=== PATIENT | male | born 1950 ===

== ENCOUNTER 2025-03-25 23:11 | Emergency (ER) | payer OTHER, SELFPAY ==
--- OUTSIDE RECORDS SUMMARY | 2025-03-21 23:59 | XMS_ITS | Continuity of Care Document ---
Author Organization [facility] Address [address] [place] [address]- Care Team Providers Care Editor News Name Role Phone Neftali Santos MD Primary Care Physician Encounter [facility] Date(s): 02/19/25 - 03/21/25 [facility] [address] [place] [address]- Encounter Type: Triage Allergies, Adverse Reactions, Alerts No Known Allergies Immunizations Given and Recorded Vaccine Date Status Refusal Reason SARS-CoV-2(COVID-19)mRNA-LNP vac([id number]) 05/29/23 Recorded pneumococcal 20-valent conjugate vaccine 05/25/23 Given SARS-CoV-2 (COVID-19) mRNA BNT-162b2 vac 06/21/21 Given SARS-CoV-2 (COVID-19) Ad26 vaccine 11/02/20 Record ed influenza virus vaccine, inactivated 06/29/20 Give n influenza virus vaccine, inactivated 05/12/15 Give n pneumococcal 23-valent vaccine 04/23/14 Given pneumococcal 23-valent vaccine 03/20/12 Recorded Zoster Vaccine Live 1 02/04/14 Given tetanus/diphtheria/pertussis, acel(Tdap) 02/04/14 Given tetanus/diphtheria/pertussis, acel(Tdap) 12/11/11 Recorded 1Result Comment: [02/04/2014] Sterile Diluent Lot#[id number] Exp: 06/2014 Medications acetaminophen 500 mg oral tablet See Instructions, TOME DOS TABLETAS POR VIA ORAL CADA DOCE HORAS CUANDO SEA NECESARIO PARA EL [id number] DAYS, # 60 tablet, 0 Refills, Maintenance, 02/19/25 10:12:00 AM EDT, [id number], 173, cm, 01/16/25 18:26:00 EDT, Height, 68.7, kg, 11/22/24 13:30:00 EDT, Dry Weight Start Date: 02/19/25 Status: Ordered Medication Dispense Status: Completed Quantity: 60.0 Unit: tablet Total Allowed Fills: 1 Fills Dispensed: 0 aspirin 81 mg oral delayed release tablet 1 tablet = 81 mg, By Mouth, Daily, # 90 tablet, 3 Refills, Maintenance, 08/09/24 11:31:00 AM EST, CRTablet, [facility]/pharmacy #[id number], Partial fill upon patient request if the prescription is for a scheduleII opioid drug., 173, cm, 08/09/24 10:08:00 EST, Height, 68, kg, 02/14/23 12:59:00 EDT, Dry Weight Start Date: 08/09/24 Status: Ordered Medication Dispense Status: Completed Quantity: 90.0 Unit: tablet Total Allowed Fills: 4 Fills Dispensed: 0 atorvastatin 80 mg oral tablet = 80 mg, By Mouth, Daily at bedtime, # 90 tablet, 3 Refills, Maintenance, 11/16/22 1:45:00 PM EDT, Tablet, [facility]/pharmacy #[id number], Label in Zimbabwean., 171, cm, 11/16/22 13:28:00 EDT, Height, 67.6, kg, 03/29/22 15:27:00 EDT, Dry Weight Start Date: 11/16/22 Stop Date: 11/11/23 Status: Ordered Medication Dispense Status: Completed Quantity: 90.0 Unit: tablet Total Allowed Fills: 4 Fills Dispensed: 0 carvedilol 6.25 mg oral tablet TOME 1 TABLETA POR V A ORAL DOS VECES AL D A Start Date: 11/04/24 Status: Ordered Medication Dispense Status: Completed Total Allowed Fills: 1 Fills Dispensed: 0 cholecalciferol 1000 intl units oral capsule 1 capsule = 25 mcg, By Mouth, Daily, # 100 capsule, 1 Refills, Maintenance, 01/26/23 4:13:00 PM EDT, Capsule, [facility]/pharmacy #[id number], Label in [place]an., 171, cm, 01/26/23 14:01:00 EDT, Height, 67.6, kg, 03/29/22 15:27:00 EDT, Dry Weight Start Date: 01/26/23 Status: Ordered Medication Dispense Status: Completed Quantity: 100.0 Unit: capsule Total Allowed Fills: 2 Fills Dispensed: 0 docusate sodium 100 mg oral capsule See Instructions, TOME 1 CAPSULA POR VIA ORAL DOS VECES AL MITCH TO PREVENT CONSTIPATION, TAKE WITH PLENTY OF WATER, # 180 capsule, 1 Refills, Maintenance, 01/13/25 11:32:00 AM EDT, [facility]/pharmacy #[id number], 173, cm, 12/20/24 10:30:00 EDT, Height, 68.7, kg, 11/22/24 13:30:00 EDT, Dry Weight Start Date: 01/13/25 Status: Ordered Medication Dispense Status: Completed Quantity: 180.0 Unit: capsule Total Allowed Fills: 2 Fills Dispensed: 0 Eliquis 2.5 mg oral tablet 1 tablet = 2.5 mg, By Mouth, 2 times a day, Take for the first 7 days postop, then resume home dose., # 14 tablet, 0 Refills, Maintenance, 11/23/24 8:11:00 AM EDT, Tablet, Partial fill upon patient request if the prescription is for a schedule II opioid drug. Start Date: 11/23/24 Stop Date: 11/30/24 Status: Ordered Medication Dispense Status: Completed Quantity: 14.0 Unit: tablet Total Allowed Fills: 1 Fills Dispensed: 0 Eliquis 5 mg oral tablet 1 tablet = 5 mg, By Mouth, 2 times a day, # 60 tablet, 5 Refills, 03/27/24 11:59:00 AM EDT, [facility]/pharmacy #[id number], Label in [place]an., 173, cm, 10/27/23 13:36:00 EDT, Height, 68, kg, 02/14/23 12:59:00 EDT,Dry Weight Start Date: 03/27/24 Status: Ordered Medication Dispense Status: Completed Quantity: 60.0 Unit: tablet Total Allowed Fills: 6 Fills Dispensed: 0 ferrous sulfate 325 mg oral enteric coated tablet 1, tablet, By Mouth, Every 48 hours, # 45 tablet, Refills 1, Maintenance, 09/18/23 11:41:00 AM EST, Route to Pharmacy Electronically, [id number], 173, cm, 06/22/23 15:01:00 EST, Height, 68, kg, 02/14/23 12:59:00 EDT, Dry Weight Start Date: 09/18/23 Status: Ordered Medication Dispense Status: Completed Quantity: 45.0 Unit: tablet Total Allowed Fills: 1 Fills Dispensed: 0 fluticasone 50 mcg/inh nasal spray See Instructions, USE 1 SPRAY IN EACH NOSTRIL DOS VECES AL MITCH, # 48 mL, 5 Refills, Maintenance, 09/18/23 9:55:00 AM EST, [facility]/pharmacy #[id number], 90, USE 1 SPRAY IN EACH NOSTRIL DOS VECES AL MITCH, 173, cm,06/22/23 15:01:00 EST, Height, 68, kg, 02/14/23 12:59:00 EDT, Dry Weight Start Date: 09/18/23 Status: Ordered Medication Dispense Status: Completed Quantity: 48.0 Unit: mL Total Allowed Fills: 6 Fills Dispensed: 0 Home Blood Pressure Monitor See Instructions, # 1 each, Maintenance, Hypertension I10 Monitor blood pressure in home, 10/30/23 8:27:00 AM EDT, Supply Start Date: 10/30/23 Status: Ordered Medication Dispense Status: Completed Quantity: 1.0 Unit: each Total Allowed Fills: 1 Fills Dispensed: 0 loratadine 10 mg oral tablet See Instructions, TOME 1 TABLETA POR VIA ORAL TODOS [place], # 90 tablet, Refills 1, Maintenance, 02/19/25 10:49:00 AM EDT, Instructions Replace Required Details, Route to Pharmacy Electronically, [facility]ORE [id number], 173, cm, 01/16/25 18:26:00 EDT, Height, 68.7, kg, 11/22/24 13:30:00 EDT, Dry Weight Start Date: 02/19/25 Status: Ordered Medication Dispense Status: Completed Quantity: 90.0 Unit: tablet Total Allowed Fills: 1 Fills Dispensed: 0 MiraLax Powder 1 pack/packet = 17 Gm, By Mouth, Daily, PRN Constipation, 0 Refills, Maintenance, 11/23/24 8:14:00 AMEDT, Powder, Partial fill upon patient request if the prescription is for a schedule II opioid drug. Start Date: 11/23/24 Status: Ordered Medication Dispense Status: Completed Total Allowed Fills: 1 Fills Dispensed: 0 naloxone 4 mg/0.1 mL nasal spray = 4 mg, Nares, Both, Once, # 2 each, 12 Refills, Soft Stop, 03/28/23 5:00:00 PM EDT, [facility]/pharmacy #[id number], Partial fill upon patient request if the prescription is for a schedule II opioid drug., 173, cm, 03/28/23 15:18:00 EDT, Height, 68, kg, 02/14/23 12:59:00 EDT, Dry Weight Start Date: 03/28/23 Status: Ordered Medication Dispense Status: Completed Quantity: 2.0 Unit: each Total Allowed Fills: 13 Fills Dispensed: 0 oxyCODONE 5 mg oral tablet 5 mg, 1, tablet, By Mouth, Daily, PRN, # 28 tablet, Refills 0, Tot. Refills 0, Maintenance, Pain , Severe, 03/20/25 2:48:00 PM EDT, Route to Pharmacy Electronically, [facility], Partial fill upon patient request if the prescription is for a schedule II opioid drug. 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; Ok to dispense on monday01/21/25, 173, cm, 01/16/25 18:26:00 EDT, Height, 68.7, kg, 11/22/24 13:30:00 EDT, Dry Weight Start Date: 03/20/25 Status: Ordered Medication Dispense Status: Completed Quantity: 28.0 Unit: tablet Total Allowed Fills: 1 Fills Dispensed: 0 Indications: Osteoarthritis of knee, unspecified; pantoprazole 40 mg oral delayed release tablet = 40 mg, By Mouth, Daily, # 30 tablet, 0 Refills, Maintenance, 11/23/24 8:12:00 AM EDT, EC Tablet Start Date: 11/23/24 Stop Date: 12/23/24 Status: Ordered Medication Dispense Status: Completed Quantity: 30.0 Unit: tablet Total Allowed Fills: 1 Fills Dispensed: 0 Rollator Walker with seat and breaks Rollator Walker with seat and breaks, See Instructions, # 1 each, Refills 0, Tot. Refills 0, Maintenance, Dx: Osteoarthritis M19.90 Duration: lifetime Ht: 169cm wt: 70.7kg, 03/02/22 10:39:00 AM EDT, Supply Start Date: 03/02/22 Status: Ordered Medication Dispense Status: Completed Quantity: 1.0 Unit: each Total Allowed Fills: 1 Fills Dispensed: 0 Senna-Time 8.6 mg oral tablet See Instructions, TOME DOS TABLETAS POR VIA ORAL AL ACOSTARSE CUANDO SEA NECESARIO CONSTIPATION, # 60 tablet, 0 Refills, Maintenance, 02/19/25 10:12:00 AM EDT, [facility] [id number], 173, cm, 01/16/25 18:26:00 EDT, Height, 68.7, kg, 11/22/24 13:30:00 EDT, Dry Weight Start Date: 02/19/25 Status: Ordered Medication Dispense Status: Completed Quantity: 60.0 Unit: tablet Total Allowed Fills: 1 Fills Dispensed: 0 Shower chair Shower chair, See Instructions, # 1 each, Refills 0, Tot. Refills 0, Maintenance, Dx: Osteoarthritis M19.90 Duration: lifetime Ht: 169cm wt: 70.7kg, 03/02/22 10:38:00 AM EDT, Supply Start Date: 03/02/22 Status: Ordered Medication Dispense Status: Completed Quantity: 1.0 Unit: each Total Allowed Fills: 1 Fills Dispensed: 0 Tears Naturale Forte preserved ophthalmic solution 1 drops, Eyes, Both, 2 times a day, PRN for dry eyes, # 30 mL, 3 Refills, Maintenance, 08/09/24 11:32:00 AM EST, Solution, [facility]/pharmacy #[id number], Partial fill upon patient request if the prescription is for a schedule II opioid drug., 1 drops Eyes, Both 2 times a day,PRN:for dry eyes, 173, cm, 08/09/2509:08:00 EST, Height, 68, kg, 02/14/23 12:59:00 EDT, Dry Weight Start Date: 08/09/24 Status: Ordered Medication Dispense Status: Completed Quantity: 30.0 Unit: mL Total Allowed Fills: 4 Fills Dispensed: 0 VITAMIN D3 1,000 UNIT SOFTGEL VITAMIN D3 1,000 UNIT SOFTGEL, 1, capsule, By Mouth, Daily, # 100 capsule, 3 Refills, Maintenance, 01/15/24 1:41:00 PM EDT, 173, cm, 10/27/23 13:36:00 EDT, Height, 68, kg, 02/14/23 12:59:00 EDT, Dry Weight Start Date: 01/15/24 Status: Ordered Medication Dispense Status: Completed Quantity: 100.0 Unit: capsule Total Allowed Fills: 1 Fills Dispensed: 0 Problem List Condition Confirmation Course Effective Dates Status Health Status Informant Atrial fibrillation Confirmed Active Constipation Confirmed Active Coronary artery disease Confirmed Active DDD (degenerative disc disease), lumbar Confirmed Active Duodenal diverticulum by imaging Confirmed Active History of heart attack Confirmed Active Status post left hip surgery Confirmed 11/10/18 Active History of hypercholesteremia Confirmed Active Hyperparathyroidism Confirmed Active History of hypertension Confirmed Active Hypertension Confirmed Active Hernia, inguinal, left 1 Confirmed Active Low back pain Confirmed Active Microscopic hematuria Confirmed Active Osteoarthritis of knee 2 Confirmed Active Prediabetes Confirmed Active Kidney cysts Confirmed Active Spinal stenosis of lumbar region 3 Confirmed 2011 Active Staghorn renal calculus Confirmed Active Tubular adenoma of colon Confirmed 06/25/14 Active 1S/P Repair February 16 2pe 2012 MRI, left, severe 3severe on 2011 MRI Social History Social History Type Response Tobacco Other: Quit 2013. Sex Sex Representation Male (finding) Implantable Device List Procedure Provider Procedure Date Device Type Site Repair Hernia Inguinal Laparoscopic with Pietro Adan DO 02/16/23 Unknown Groin Left Device Identifier Serial Number Lot or Batch Number Manufacturing Date Expiration Date Distinct Identification Code MRI Safety Implantable Status Assigning Authority [id number] Unknown [id number] Unknown 08/20/27 Unknown Unknown Active GS1 Patient Care team information Care Team Personnel Name: Isha Belcher RN Position: [facility] Hospital Entry Manager Member Role: Primary Care Nurse Name: Kinga Wylie RN Position: [facility] RN Member Role: Primary Care Nurse Name: Chelsea Chacko RN Position: [facility] RN Member Role: Primary Care Nurse Name: Moon Darling RN Position: [facility] RN Member Role: Primary Care Nurse Name: Freddie De RN Position: [facility] RN Member Role: Primary Care Nurse Name: Neftali Santos MD Position: [facility] Resident Member Role: PCP Address: [address] [place] [address] Telecom: Name: Rickey Coates RN Position: [facility] RN Member Role: Primary Care Nurse Name: Chelsea Mathias RN Position: S RN Member Role: Primary Care Nurse Name: Eusebia Coe RN Position: S RN Member Role: Primary Care Nurse Care Team Related Persons Name: COMFORT JARAMILLO Insurance Providers Guarantor name: [facility] Information #: 1 Payer: MEDICARE B Payer Identifier: ROCHELLE Member Number: [id number] Group Number: [place]HEL[place] Subscriber Identifier: NA Relationship to Subscriber: self Coverage Type: NA Coverage Verification Date: NA Telecom: NA Address: [facility] Information #: 2 Payer: [facility] CUST[employer]ER SERVICE Payer Identifier: ROCHELLE Member Number: [id number] Group Number: ROCHELLE Subscriber Identifier: NA Relationship to Subscriber: self Coverage Type: MEDICAID Coverage Verification Date: NA Telecom: NA Address:
--- OUTSIDE RECORDS SUMMARY | 2025-03-21 23:59 | XMS_ITS | Continuity of Care Document ---
Author Organization [facility] Address [address] [place] [address]- Care Team Providers Care Edi Specialist Name Role Phone Neftali Santos MD Primary Care Physician Encounter [facility] Date(s): 02/19/25 - 03/21/25 [facility] [address] [place] [address]- Encounter Type: Triage Allergies, Adverse Reactions, Alerts No Known Allergies Immunizations Given and Recorded Vaccine Date Status Refusal Reason SARS-CoV-2(COVID-19)mRNA-LNP vac([id number]) 05/29/23 Recorded pneumococcal 20-valent conjugate vaccine 05/25/23 [...] 12/11/11 Recorded 1Result Comment: [02/04/2014] Sterile Diluent Lot#[id number] Exp: 06/2014 Medications acetaminophen 500 mg oral tablet See Instructions, TOME DOS TABLETAS POR VIA ORAL CADA DOCE HORAS CUANDO SEA NECESARIO PARA EL [id number] DAYS, # 60 tablet, 0 Refills, Maintenance, 02/19/25 10:12:00 AM EDT, [facility], 173, cm, 01/16/25 18:26:00 EDT, Height, 68.7, kg, 11/22/24 13:30:00 EDT, Dry Weight Start Date: 02/19/25 Status: Ordered Medication Dispense Status: Completed Quantity: 60.0 Unit: tablet Total Allowed Fills: 1 Fills Dispensed: 0 aspirin 81 mg oral delayed release tablet 1 tablet = 81 mg, By Mouth, Daily, # 90 tablet, 3 Refills, Maintenance, 08/09/24 11:31:00 AM EST, CRTablet, [facility]/pharmacy #[id number], Partial fill upon patient request if [...] Refills, Maintenance, 11/16/22 1:45:00 PM EDT, Tablet, [facility]/pharmacy #[id number], Label in Azerbaijani., 171, cm, 11/16/22 13:28:00 EDT, Height, 67.6, [...] Refills, Maintenance, 01/26/23 4:13:00 PM EDT, Capsule, [facility]/pharmacy #[id number], Label in Azerbaijani., 171, cm, 01/26/23 14:01:00 EDT, Height, 67.6, [...] 1 Refills, Maintenance, 01/13/25 11:32:00 AM EDT, [facility]/pharmacy #[id number], 173, cm, 12/20/24 10:30:00 EDT, Height, [...] tablet, 5 Refills, 03/27/24 11:59:00 AM EDT, [facility]/pharmacy #[id number], Label in Azerbaijani., 173, cm, 10/27/23 13:36:00 EDT, Height, 68, kg, 02/14/23 12:59:00 EDT,Dry Weight Start Date: 03/27/24 Status: Ordered Medication Dispense Status: Completed Quantity: 60.0 Unit: tablet Total Allowed Fills: 6 Fills Dispensed: 0 ferrous sulfate 325 mg oral enteric coated tablet 1, tablet, By Mouth, Every 48 hours, # 45 tablet, Refills 1, Maintenance, 09/18/23 11:41:00 AM EST, Route to Pharmacy Electronically, [facility], 173, cm, 06/22/23 15:01:00 EST, Height, 68, kg, 02/14/23 12:59:00 EDT, Dry Weight Start Date: 09/18/23 Status: Ordered Medication Dispense Status: Completed Quantity: 45.0 Unit: tablet Total Allowed Fills: 1 Fills Dispensed: 0 fluticasone 50 mcg/inh nasal spray See Instructions, USE 1 SPRAY IN EACH NOSTRIL DOS VECES AL MITCH, # 48 mL, 5 Refills, Maintenance, 09/18/23 9:55:00 AM EST, [facility]/pharmacy #[id number], 90, USE 1 SPRAY IN EACH [...] Replace Required Details, Route to Pharmacy Electronically, [facility] [id number], 173, cm, 01/16/25 18:26:00 EDT, Height, 68.7, [...] Refills, Soft Stop, 03/28/23 5:00:00 PM EDT, [facility]/pharmacy #[id number], Partial fill upon patient request if [...] 2:48:00 PM EDT, Route to Pharmacy Electronically, [facility], Partial fill upon patient request if the prescription is for a schedule II opioid drug. 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; [...] 0 Refills, Maintenance, 02/19/25 10:12:00 AM EDT, [facility] 55252, 173, cm, 01/16/25 18:26:00 EDT, Height, 68.7, [...] Refills, Maintenance, 08/09/24 11:32:00 AM EST, Solution, [facility]/pharmacy #[id number], Partial fill upon patient request if the [...] Code MRI Safety Implantable Status Assigning Authority [id number] Unknown [id number] Unknown 08/20/27 Unknown Unknown Active GS1 Patient Care team information Care Team Personnel Name: Isha Beclher RN Position: [facility] Hospital Blind Stitch Machine Operator Member Role: Primary Care Nurse Name: Kinga Wylie RN Position: [facility] RN Member Role: Primary Care Nurse Name: Chelsea Chacko RN Position: [facility] RN Member Role: Primary Care Nurse Name: Moon Darling RN Position: [facility] RN Member Role: Primary Care Nurse Name: Freddie De RN Position: [facility] RN Member Role: Primary Care Nurse Name: Neftali Santos MD Position: [facility] Resident Member Role: PCP Address: [address] [place] [address] Telecom: Name: Rickey Coates RN Position: [facility] RN Member Role: Primary Care Nurse Name: Chelsea Mtahias RN Position: S RN Member Role: Primary Care Nurse Name: Eusebia Coe RN Position: S RN Member Role: Primary Care Nurse Care Team Related Persons Name: COMFORT JARAMILLO Insurance Providers Guarantor name: [facility] Information #: 1 Payer: MEDICARE B Payer Identifier: ROCHELLE Member Number: [id number] Group Number: [place]HEL[place] Subscriber Identifier: NA Relationship to Subscriber: self Coverage Type: NA Coverage Verification Date: NA Telecom: NA Address: [facility] Information #: 2 Payer: [facility] C[employer]ER [employer]ICE Payer Identifier: ROCHELLE Member Number: [id number] Group Number: [place]HELLE Subscriber Identifier: NA Relationship to Subscriber: self Coverage Type: MEDICAID Coverage Verification Date: NA Telecom: NA Address:
[2025-03-25 23:21] VITALS: BP 177/128; PULSE 74; RESP 18; TEMP 36.7; O2SAT 98; BMI 23.1
[2025-03-26 00:23] LABS: Hematocrit 39.6 % (42.0-52.0); Hemoglobin 12.9 g/dl (14.0-18.0); Mean Corpuscular HGB Conc 32.6 g/dl (31.0-36.0); Mean Corpuscular Hemoglobin 26.3 pg (27.0-33.0); Mean Corpuscular Volume 80.8 fL (80.0-98.0); NRBC Abs Auto 0.000 X10*3/uL (0.0-0.012); NRBC Pct Auto 0.0 /100WBC (0.0-0.2); Platelet Count 240 X10*3/uL (160-400); Red Blood Count 4.90 X10*6/uL (4.60-5.80); White Blood Count 7.8 X10*3/uL (4.8-10.8)
[2025-03-26 00:24] LABS: Appearance Urine Clear; Glucose Urine UA Negative (Negative); PH 7.0 (5.0-9.0); Specific Gravity - Urine 1.015 (1.005-1.025); UMIC TRIGGER UACC YES
[2025-03-26 00:27] LABS: UACC Culture Trigger YES
[2025-03-26 00:37] LABS: Alanine Aminotransferase 30 U/L (0-40); Albumin Level 4.2 g/dL (3.5-5.0); Alkaline Phosphatase 142 U/L (39-117); Anion Gap 13 (12-20); Aspartate Amino Transferase 34 U/L (5-37); Blood Urea Nitrogen 22 mg/dL (9-16); Calcium 9.4 mg/dL (8.4-10.2); Carbon Dioxide 21 mmol/L (22-29); Chloride 111 mmol/L (96-108); Creatinine Clr Calc Pharmacy 56.6; Estimated Glomerular Filt Rate > 60; Potassium 4.5 mmol/L (3.3-5.1); Sodium 140 mmol/L (135-145); Total Protein 7.3 g/dL (6.5-8.0)
--- NOTE | 2025-03-26 01:08 | ED.GENADULT ---
HPI - General Adult General Chief complaint: Abdominal Pain Stated complaint: Possible UTI Time Seen by Provider: 03/26/25 00:41 Source: patient, RN notes reviewed and old records reviewed Mode of arrival: ambulatory Limitations: no limitations History of Present Illness ED Provider: Cisco MALDONADO narrative: 74-year-old male presents for evaluation of left flank pain and foul-smelling urine with urinary frequency. His symptoms started a few days ago. He reports no fevers or chills pain He has a remote history of kidney stones about 20 years ago. His pain is intermittent. Currently he has very little pain, approximately 2/10. He has a history of coronary artery disease he is not a diabetic Related Data Previous Rx's ?Medication ?Instructions ?Recorded cefuroxime axetil 500 mg tablet 500 mg PO Q12H #14 tabs 03/26/25 phenazopyridine 200 mg tablet 200 mg PO TID PRN pain 6 doses #6 03/26/25 (Pyridium) tabs Allergies Allergy/AdvReac Type Severity Reaction Status Date / Time No Known Allergies Allergy Verified 03/25/25 23:22 Review of Systems Constitutional: Constitutional: Denies body ache(s), Denies chills, Denies fever(s) and Denies headache(s) ENT: Denies vertigo, Denies dizziness and Denies headache(s) Cardiovascular: Cardiovascular: Denies chest pain and Denies dyspnea on exertion Respiratory: Respiratory: Denies cough and Denies dyspnea on exertion Gastrointestinal: Gastrointestinal: Reports abdominal pain, Denies nausea and Denies vomiting Genitourinary: Genitourinary: Reports dysuria, Reports flank pain and Reports urinary frequency Comments: reports foul-smelling urine Neurologic: Denies vertigo, Denies dizziness and Denies headache(s) [facility] Social History Social History Smoked in Last 30 Days: No Use of substances other than those prescribed or required for medical reasons: No Advance Directives: No Advance Directives Information Provided: Yes Physical Exam ED Vital Signs: Vital Signs - 24 hr 03/25/25 23:21 03/26/25 01:25 03/26/25 01:26 Temperature 98.1 F 98.1 F 98.1 F Pulse Rate 74 82 82 Respiratory Rate 18 18 18 Blood Pressure 177/128 H 169/78 H 169/78 H Pulse Oximetry 98 98 98 Oxygen Delivery Method Room Air Room Air Room Air BMI result Body Mass Index 23.1 Const General: healthy appearing, comfortable, no acute distress, alert and awake Nutritional Appearance: well nourished Orientation/consciousness: patient oriented x3 HENMT Head: Yes normocephalic and Yes atraumatic Eyes Eyelids: Yes eyelids normal Conjunctivae: conjunctivae normal Sclerae: sclerae normal Corneas: corneas normal Pupils: Equal, round and reactive pupils present EOM: EOMs intact bilaterally Neck Neck: Yes full ROM Resp Effort & Inspection: normal respiratory effort, able to speak in complete sentences and not labored GI Inspection: No distended Palpation (GI): Soft to palpation, not firm, nontender, no guarding and not rigid General: No CVA tenderness and Yes no CVA tenderness Back/Spine/Pelvis Back: no CVA tenderness and No CVA tenderness Skin General skin exam: elasticity normal Neuro General: patient oriented x3 Cranial nerves: Yes Equal, round and reactive pupils present and Yes Bilaterally intact EOM present Cognition (Neuro): normal cognition Extrem Other: Moving all extremities well without any obvious deformities Medications Administered Discontinued Medications Generic Name Dose Route Start Last Admin Trade Name Freq PRN Reason Stop Dose Admin Cefuroxime Axetil 500 mg 03/26/25 01:08 03/26/25 01:22 Cefuroxime Axetil 500 Mg Tablet PO 03/26/25 01:09 500 mg ONCE ONE Administration Medical Decision Making Medical Decision Making [facility] Narrative: 74-year-old male presenting for evaluation of left flank pain, foul-smelling urine and urinary frequency. He is mildly hypertensive but otherwise vital signs are stable, he is afebrile, he is not tachycardic. On exam he appears well, he has no significant abdominal pain or tenderness. No CVA tenderness. He has no leukocytosis, his urinalysis does show 4+ bacteria with positive nitrites and leukocyte esterase. there is trace blood noted in the urine. This is far more consistent with an infectious process than an obstructive stone. The patient has very limited pain, and again with no CVA tenderness I feel that obstructive uropathy is far less likely. I did discuss with the patient possible imaging and he would like to defer at this time. I gave him return precautions, especially develop severe pain or fevers to return to the emergency department for likely imaging Differential Diagnosis Differential Diagnoses: The differential diagnosis associated with the presentation includes UTI Cystitis Pyelonephritis Obstructive uropathy Lab Data MDM Lab Attestation statement: I reviewed the patient's lab results. as above 03/26/25 00:12 03/26/25 00:12 Labs: Lab Results 03/26/25 Range/Units 00:12 WBC 7.8 (4.8-10.8) X10*3/uL RBC 4.90 (4.60-5.80) X10*6/uL Hgb 12.9 L (14.0-18.0) g/dl Hct 39.6 L (42.0-52.0) % MCV 80.8 (80.0-98.0) fL MCH 26.3 L (27.0-33.0) pg MCHC 32.6 (31.0-36.0) g/dl RDW 15.9 (11.0-16.0) % Plt Count 240 (160-400) X10*3/uL MPV 10.1 (9.4-12.4) fL Absolute Nucleated RBC 0.000 (0.0-0.012) X10*3/uL Nucleated RBC % (auto) 0.0 (0.0-0.2) /100WBC Sodium 140 (135-145) mmol/L Potassium 4.5 (3.3-5.1) mmol/L Chloride 111 H (96-108) mmol/L Carbon Dioxide 21 L (22-29) mmol/L Anion Gap 13 (12-20) BUN 22 H (9-16) mg/dL Creatinine 1.09 (0.5-1.4) mg/dL Estim Creat Clear Calc 56.6 Estimated GFR > 60 Random Glucose 97 (60-115) mg/dL Calcium 9.4 (8.4-10.2) mg/dL Total Bilirubin 0.2 (0.0-1.0) mg/dL AST 34 (5-37) U/L ALT 30 (0-40) U/L Alkaline Phosphatase 142 H (39-117) U/L Total Protein 7.3 (6.5-8.0) g/dL Albumin 4.2 (3.5-5.0) g/dL Urine Color Yellow Urine Appearance Clear Urine pH 7.0 (5.0-9.0) Ur Specific [place] 1.015 (1.005-1.025) Urine Protein Negative (Neg-Trace) mg/dL Urine Glucose (UA) Negative (Negative) mg/dL Urine Ketones Negative (Negative) mg/dL Urine Blood Trace H (Negative) Urine Nitrite Positive H (Negative) Ur Leukocyte Esterase Large (3+) H (Negative) Urine RBC 0-2 (0-2) /HPF Urine WBC >50 H (0-5) /HPF Ur Squamous Epith Cells 0-2 (0-2) /HPF Urine Bacteria 4+ (None Seen) Hyaline Casts 0-2 (0-2) /LPF External Record Review External record reviewed: Inpatient record, Outpatient record and Prior outpatient labs Tests considered The following testing was considered but not selected: Considered CT scan of the abdomena nd pelvis Prescription Management I considered prescription management with: Pain Medication and Antibiotic Chronic Conditions Patient?s care impacted by: Hypertension Social Determinants Patient?s care significantly limited by Social Determinants of Health including: Low income Discharge Plan Discharge Clinical Impression: Urinary tract infection Patient Disposition: Home, Self-Care Instructions: Urinary Tract Infection in Older Adults (ED) Additional Instructions: your urinalysis was consistent with a urinary tract infection. Take the cefuroxime twice daily for 1 week. You may use Pyridium for urinary discomfort. You may also use Tylenol. Return to the ER for new or worsening symptoms, especially develop a fever, severe pain, as you may benefit from imaging You may follow up with the Urology at the number provided [facility] will be contacting you within 2 business?days after being discharged from the Emergency?Department.? During this?phone call, they will inform you when your follow up appointment will be scheduled. If you have not received a call from [facility] after 2 business?days, please call the?office at [phone]. Prescriptions: New cefuroxime axetil 500 mg tablet 500 mg PO Q12H Qty: 14 0RF phenazopyridine [Pyridium] 200 mg tablet 200 mg PO TID PRN (Reason: pain) Qty: 6 0RF Interventions: ED Discharge Assessment Last Done: 03/26/25 01:26 Discharge Date/Time: 03/26/25 01:26 Print Language: Maori
[2025-03-26 01:25] VITALS: BP 169/78; PULSE 82; RESP 18; TEMP 36.7; O2SAT 98
[2025-03-26 01:26] VITALS: BP 169/78; PULSE 82; RESP 18; TEMP 36.7; O2SAT 98
== END 2025-03-26 01:26 | disposition home or self-care (01) ==
PROVIDERS: Emergency Provider Emergency Medicine
DX: N39.0 Urinary tract infection, site not specified (principal); Z79.899 Other long term (current) drug therapy
CPT/HCPCS: 36415; 80053; 81001; 85027; 87086; 87088; 87186; 99283; 99284

== ENCOUNTER 2025-07-08 15:35 | Emergency (ER) | payer OTHER, SELFPAY ==
--- NOTE | ~2025-07-08 | XR_ITS ---
CLINICAL HISTORY: back pain 3 views lumbar spine Comparison: None provided Findings: Normal vertebral body alignment. Mild osteopenia. No significant degenerative change. Prior cholecystectomy. L2-3: Moderate DJD with endplate sclerosis. L3-4: Severe DJD with endplate sclerosis. L4-5: Moderate DJD with endplate sclerosis. L5-S1: Severe DJD with endplate sclerosis. Multiple radiopaque springlike sutures in the left lower quadrant; prior inguinal hernia repair with mesh. Moderate calcified atherosclerotic disease of the abdominal aorta. Infrarenal abdominal aortic aneurysm, 3.1 cm. Left renal lower pole staghorn calculus, 3.1 by 1 cm. IMPRESSION: 1. Severe degenerative joint disease at L3-4 and L5-S1 levels. 2. Moderate degenerative joint disease at L2-3 and L4-5 levels. 3. Infrarenal abdominal aortic aneurysm, measuring 3.1 cm. 4. Moderate calcified atherosclerotic disease of the abdominal aorta. 5. Left renal lower pole staghorn calculus, 3.1 x 1 cm. This document has been electronically signed by: Shaun Lynch MD on 07/08/2025 18:30:43
--- NOTE | ~2025-07-08 | CT_ITS ---
CLINICAL HISTORY: Flank pain UA shows UTI. kidney stones? pyel? CT abdomen and pelvis without contrast Comparison: CR - XR LUMBAR SPINE 2-3V - 07/08/25 18:20 EST Findings: Hiatal hernia. Prior cholecystectomy. Left renal lower pole staghorn calculus, 2.3 x 1 cm. Interpolar region 1 cm, 1 cm nonobstructing nephroliths. Moderate left renal atrophy. No bowel obstruction, pneumoperitoneum, or pneumatosis. Calcified coronary atherosclerotic disease. Moderate calcified atherosclerotic disease abdominal aorta. Umbilical hernia, the defect 1.6 cm. Left lower quadrant anterior abdominal wall prior hernia repair with mesh. The liver and spleen, adrenals and pancreas is within normal limits. The right kidney is within normal limits. Correct The appendix is within normal limits. Prior left hip open reduction internal fixation. [id number] osteopenia. L2-3, L3-4, L4-5 and L5-S1: Moderate to severe DJD. IMPRESSION: 1. Left renal lower pole staghorn calculus, 2.3 x 1 cm, with additional 1 cm nonobstructing nephroliths. 2. Moderate left renal atrophy. 3. Hiatal hernia. 4. Umbilical hernia with 1.6 cm defect. 5. Moderate to severe degenerative joint disease at L2-3, L3-4, L4-5, and L5-S1. 6. No acute intraabdominal or pelvic findings. This document has been electronically signed by: Shaun Lynch MD on 07/08/2025 19:42:06
[2025-07-08 16:56] VITALS: BP 168/86; PULSE 81; RESP 18; TEMP 36.6; O2SAT 98; BMI 23.5
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
[2025-07-08 18:06] LABS: Appearance Urine Cloudy; Glucose Urine UA Negative (Negative); PH 7.0 (5.0-9.0); Specific Gravity - Urine 1.020 (1.005-1.025); UMIC TRIGGER UACC YES
[2025-07-08 18:09] LABS: UACC Culture Trigger YES
[2025-07-08 19:30] LABS: Hematocrit 43.0 % (42.0-52.0); Hemoglobin 13.6 g/dl (14.0-18.0); Imm Gran Abs Auto 0.02 X10*3/uL (0.00-0.03); Imm Gran Pct Auto 0.3 % (0.0-0.4); Lymphocytes Absolute Auto 2.3 X10*3/uL (1.2-4.9); MANUAL DIFF FLAG NO; Mean Corpuscular HGB Conc 31.6 g/dl (31.0-36.0); Mean Corpuscular Hemoglobin 27.2 pg (27.0-33.0); Mean Corpuscular Volume 86.0 fL (80.0-98.0); NRBC Abs Auto 0.000 X10*3/uL (0.0-0.012); NRBC Pct Auto 0.0 /100WBC (0.0-0.2); Platelet Count 255 X10*3/uL (160-400); Red Blood Count 5.00 X10*6/uL (4.60-5.80); White Blood Count 7.2 X10*3/uL (4.8-10.8)
[2025-07-08 19:43] LABS: Alanine Aminotransferase 54 U/L (0-40); Albumin Level 4.5 g/dL (3.5-5.0); Alkaline Phosphatase 219 U/L (39-117); Anion Gap 13 (12-20); Aspartate Amino Transferase 41 U/L (5-37); Blood Urea Nitrogen 19 mg/dL (9-16); Calcium 10.2 mg/dL (8.4-10.2); Carbon Dioxide 29 mmol/L (22-29); Chloride 109 mmol/L (96-108); Creatinine Clr Calc Pharmacy 43.5; Estimated Glomerular Filt Rate 51; Potassium 4.7 mmol/L (3.3-5.1); Sodium 146 mmol/L (135-145); Total Protein 7.6 g/dL (6.5-8.0)
--- OUTSIDE RECORDS SUMMARY | 2025-07-08 22:49 | XMS_ITS | Clinical Summary ---
Author Organization [address] [facility] Address [address] [place] [address] Phone Care Team Providers Care Bleach Mixer Name Role Phone Felix Smith MD Primary Care Provider [phone] Social History Tobacco Use Types Packs/Day Years Used Date Smoking Tobacco: Never Assessed Sex and Gender Information Value Date Recorded Sex Assigned at Not on file Legal Sex Male 1:55 AM EST Gender Identity Not on file Sexual Orientation Not on file Plan of Treatment Health Maintenance Due Date Last Done Comments DTaP,Tdap,and Td Vaccines (1 - Tdap) 1968 Pneumococcal Vaccine: 50+ Years (1 of 1 - PCV) 1999 Zoster Vaccines (1 of 2) 1999 RSV Immunization Adult Patients (1 - 1-dose 75+ series) 2024 Depression Screening 07/24/2024 Falls Risk Assessment 12/02/2024 Social Influencers of Health Screening 12/02/2024 COVID-19 Vaccine ( - season) 2025 Influenza Vaccine (#1) 2025 Hypertension/CHF/CAD Annual BMP Blood Test 12/11/2025 12/11/2024, 12/04/2024, 11/27/2024, Additional history exists Cholesterol Screening (Lipid Panel) 11/27/2029 11/27/2024 Hepatitis C Screening Completed 11/09/2018 HIB Vaccines Aged Out No longer eligi ble based on patient's age to complete this topic HPV Vaccines Aged Out No longer eligi ble based on patient's age to complete this topic Hepatitis A Vaccines Aged Out No long er eligible based on patient's age to complete this topic Hepatitis B Vaccines Aged Out No long er eligible based on patient's age to complete this topic IPV Vaccines Aged Out No longer eligi ble based on patient's age to complete this topic MMR Vaccines Aged Out No longer eligi ble based on patient's age to complete this topic Meningococcal ACWY Vaccine Aged Out N o longer eligible based on patient's age to complete this topic Meningococcal B Vaccine Aged Out No l onger eligible based on patient's age to complete this topic RSV Immunization Patients Under 20 months Aged Out No longer eligible based on patient's age to complete this topic Varicella Vaccines Aged Out No longer eligible based on patient's age to complete this topic Procedures Procedure Name Priority Date/Time Associated Diagnosis Comments BASIC METABOLIC PANEL Routine 12/11/2024 6:20 AM EDT Unspecified atrial fibrillation ([facility] V24, [facility] V28) Atherosclerotic heart disease of [place] coronary artery without angina pectoris LIPID PANEL WITH REFLEX TO DIRECT LDL Routine 11/27/2024 5:13 AM EDT Unspecified atrial fibrillation ([facility] V24, [facility] V28) Hyperlipidemia, unspecified Essential (primary) hypertension Anemia, unspecified Vitamin B12 deficiency anemia, unspecified Vitamin D deficiency, unspecified from Last 3 Months or Most Recently Relevant to Health Maintenance Results * Basic metabolic panel (12/11/2024 6:20 AM EDT) Sodium 138 133 - 145 mmol/L LAB CHEMISTRY METHOD 12/11/2024 9:49 AM [facility] Potassium 4.5 3.5 - 5.5 mmol/L LAB CHEMISTRY METHOD 12/11/2024 9:49 AM [facility] Chloride 107 96 - 110 mmol/L LAB CHEMISTRY METHOD 12/11/2024 9:49 AM [facility] CO2 27 21 - 32 mmol/L LAB CHEMISTRY METHOD 12/11/2024 9:49 AM [facility] Anion Gap 4 3 - 11 LAB CHEMISTRY METHOD 12/11/2024 9:49 AM [facility] Glucose 87 70 - 100 mg/dL LAB CHEMISTRY METHOD 12/11/2024 9:49 AM [facility] BUN 22 5 - 25 mg/dL LAB CHEMISTRY METHOD 12/11/2024 9:49 AM EDT [facility] Creatinine 1.09 0.70 - 1.30 mg/dL LAB CHEMISTRY METHOD 12/11/2024 9:49 AM EDT [facility] eGFR 71 >=60 mL/min/1. 73m2 LAB CHEMISTRY METHOD 12/11/2024 9:49 AM EDT [facility] Comment:Calculation based on the Chronic Kidney Disease Epidemiology Collaboration (CKD-EPI) equation refit without adjustment for race. BUN/Creatinine Ratio 20.2 LAB CHEMISTRY METHOD 12/11/2024 9:49 AM T [facility] Calcium 9.7 8.5 - 10.5 mg/dL LAB CHEMISTRY METHOD 12/11/2024 9:49 AM [facility] Blood Venous blood specimen / Unknown Venipuncture / Unknown 12/11/2024 6:20 AM EDT 12/11/2024 8:59 AM EDT us Felix Smith MD LAB BLOOD ORDERABLES Final Resul t [facility] [address] [place] [address], * (ABNORMAL) Lipid panel with reflex to direct LDL (11/27/2024 5:13 AM EDT) Cholesterol 82 0 - 200 mg/dL LAB CHEMISTRY METHOD 11/27/2024 12:24 PM T [facility] Triglycerides 75 0 - 150 mg/dL LAB CHEMISTRY METHOD 11/27/2024 12:24 PM [facility] HDL 37(L) >=40 mg/dL LAB CHEMISTRY METHOD 11/27/2024 12:24 PM [facility] LDL Calculated 30 0 - 100 mg/dL LAB CHEMISTRY METHOD 11/27/2024 12:24 PM [facility] VLDL Cholesterol Von 15 mg/dL LAB CHEMISTRY METHOD 11/27/2024 12:24 PM EDT [facility] Non HDL Chol. (LDL+VLDL) 45 <145 mg/dL LAB CHEMISTRY METHOD 11/27/2024 12:24 PM EDT [facility] Chol/HDL Ratio 2.2 0.0 - 4.4 LAB CHEMISTRY METHOD 11/27/2024 12:24 PM EDT [facility] Blood Venous blood specimen / Unknown Venipuncture / Unknown 11/27/2024 5:13 AM EDT 11/27/2024 10:58 AM EDT Felix Smith MD LAB BLOOD ORDERABLES Final Resul t [facility] [address] [place] [address], from Last 3 Months or Most Recently Relevant to Health Maintenance Insurance MEDICAID - [place] Care Teams Bleach Mixer Relationship Specialty Start Date End Date Felix Smith MD [address] [place] [address] [address] [place] [address] PCP - General Geriatric Medicine 12/03/24
--- OUTSIDE RECORDS SUMMARY | 2025-07-08 22:49 | XMS_ITS | Encounter Summary ---
[facility] Address [address] [place] [address] Care Team Providers Care Heart Specialist Name Role Phone Felix Smith MD Primary Care Provider [phone] Encounter Details Date Type Department Care Team (Late st Contact Info) Description 11/26/2024 Lab Requisition [facility] - Main Lab [address] [facility] [place] [address] Felix Smith MD [address] [place], [place] [id number] Unspecified atrial fibrillation (CMS/HCC V24, CMS/HCC V28); Hyperlipidemia, unspecified; Essential (primary) hypertension; Anemia, unspecified; Vitamin B12 deficiency anemia, unspecified; Vitamin D deficiency, unspecified Social History Tobacco Use Types Packs/Day Years Used Date Smoking Tobacco: Never Assessed Sex and Gender Information Value Date Recorded Sex Assigned at Not on file Legal Sex Male 1:55 AM EST Gender Identity Not on file Sexual Orientation Not on file documented as of this encounter Plan of Treatment Not on file documented as of this encounter Procedures Procedure Name Priority Date/Time Associated Diagnosis Comments LIPID PANEL WITH REFLEX TO DIRECT LDL Routine 11/27/2024 5:13 AM EDT Unspecified atrial fibrillation (CMS/HCC V24, CMS/HCC V28) Hyperlipidemia, unspecified Essential (primary) hypertension Anemia, unspecified Vitamin B12 deficiency anemia, unspecified Vitamin D deficiency, unspecified VITAMIN D 25 HYDROXY Routine 11/27/2024 5:13 AM EDT Unspecified atrial fibrillation (CMS/HCC V24, CMS/HCC V28) Hyperlipidemia, unspecified Essential (primary) hypertension Anemia, unspecified Vitamin B12 deficiency anemia, unspecified Vitamin D deficiency, unspecified COMPLETE BLOOD COUNT Routine 11/27/2024 5:13 AM EDT Unspecified atrial fibrillation ([facility] V24, [facility] V28) Hyperlipidemia, unspecified Essential (primary) hypertension Anemia, unspecified Vitamin B12 deficiency anemia, unspecified Vitamin D deficiency, unspecified IRON Routine 11/27/2024 5:13 AM EDT Unspecified atrial fibrillation ([facility] V24, [facility] V28) Hyperlipidemia, unspecified Essential (primary) hypertension Anemia, unspecified Vitamin B12 deficiency anemia, unspecified Vitamin D deficiency, unspecified FOLATE Routine 11/27/2024 5:13 AM EDT Unspecified atrial fibrillation ([facility] V24, [facility] V28) Hyperlipidemia, unspecified Essential (primary) hypertension Anemia, unspecified Vitamin B12 deficiency anemia, unspecified Vitamin D deficiency, unspecified VITAMIN B12 Routine 11/27/2024 5:13 AM EDT Unspecified atrial fibrillation ([facility] V24, [facility] V28) Hyperlipidemia, unspecified Essential (primary) hypertension Anemia, unspecified Vitamin B12 deficiency anemia, unspecified Vitamin D deficiency, unspecified COMPREHENSIVE METABOLIC PANEL Routine 11/27/2024 5:13 AM EDT Unspecified atrial fibrillation ([facility] V24, [facility] V28) Hyperlipidemia, unspecified Essential (primary) hypertension Anemia, unspecified Vitamin B12 deficiency anemia, unspecified Vitamin D deficiency, unspecified documented in this encounter Results * Folate (11/27/2024 5:13 AM EDT) Folate 9.5 2.8 - 17.0 ng/ml LAB CHEMISTRY METHOD 11/27/2024 12:24 PM EDT [facility] Blood Venous blood specimen / Unknown Venipuncture / Unknown 11/27/2024 5:13 AM EDT 11/27/2024 10:58 AM EDT us Felix Smith MD LAB BLOOD ORDERABLES Final Resul t [facility] [address] [place] [address], [place] [phone] * Vitamin D 25 hydroxy (11/27/2024 5:13 AM EDT) [facility] Vit D, 25-Hydroxy 35.5 30.0 - 80.0 ng/mL LAB CHEMISTRY METHOD 11/27/2024 2:31 PM EDT [facility] Blood Venous blood specimen / Unknown Venipuncture / Unknown 11/27/2024 5:13 AM EDT 11/27/2024 10:58 AM EDT us Felix Smith MD LAB BLOOD ORDERABLES Final Resul t Performing Organization Address City/[facility] Co de Phone Number [facility] [address] [place] [address], * Vitamin B12 (11/27/2024 5:13 AM EDT) [facility] Vitamin B-12 328 250 - 900 pcg/mL LAB CHEMISTRY METHOD 11/27/2024 12:24 PM EDT [facility] Blood Venous blood specimen / Unknown Venipuncture / Unknown 11/27/2024 5:13 AM EDT 11/27/2024 10:58 AM EDT us Felix Smith MD LAB BLOOD ORDERABLES Final Resul t [facility] [address] [place] [address], [place] [phone] * (ABNORMAL) Iron (11/27/2024 5:13 AM EDT) [facility] Iron 31(L) 50 - 160 mcg/dL LAB CHEMISTRY METHOD 11/27/2024 12:02 PM EDT [facility] Blood Venous blood specimen / Unknown Venipuncture / Unknown 11/27/2024 5:13 AM EDT 11/27/2024 10:58 AM EDT us Felix Smith MD LAB BLOOD ORDERABLES Final Resul t Performing Organization Address City/[facility]/ZIP Co de Phone Number [facility] [address] [place] [address], [place] [phone] * (ABNORMAL) Lipid panel with reflex to direct LDL (11/27/2024 5:13 AM EDT) [facility] Cholesterol 82 0 - 200 mg/dL LAB CHEMISTRY METHOD 11/27/2024 12:24 PM EDT [facility] Triglycerides 75 0 - 150 mg/dL LAB CHEMISTRY METHOD 11/27/2024 12:24 PM EDT [facility] HDL 37(L) >=40 mg/dL LAB CHEMISTRY METHOD 11/27/2024 12:24 PM EDT [facility] LDL Calculated 30 0 - 100 mg/dL LAB CHEMISTRY METHOD 11/27/2024 12:24 PM EDT [facility] VLDL Cholesterol Von 15 mg/dL LAB CHEMISTRY METHOD 11/27/2024 12:24 PM EDT [facility] Non HDL Chol. (LDL+VLDL) 45 <145 mg/dL LAB CHEMISTRY METHOD 11/27/2024 12:24 PM EDT [facility] Chol/HDL Ratio 2.2 0.0 - 4.4 LAB CHEMISTRY METHOD 11/27/2024 12:24 PM EDT [facility] Blood Venous blood specimen / Unknown Venipuncture / Unknown 11/27/2024 5:13 AM EDT 11/27/2024 10:58 AM EDT us Felix Smith MD LAB BLOOD ORDERABLES Final Resul t Performing Organization Address City/[facility]/ZIP Co de Phone Number [facility] [address] [place] [address], [place] [phone] * (ABNORMAL) Comprehensive metabolic panel (11/27/2024 5:13 AM EDT) Sodium 136 133 - 145 mmol/L LAB CHEMISTRY METHOD 11/27/2024 12:24 PM [facility] Potassium 4.8 3.5 - 5.5 mmol/L LAB CHEMISTRY METHOD 11/27/2024 12:24 PM [facility] Chloride 106 96 - 110 mmol/L LAB CHEMISTRY METHOD 11/27/2024 12:24 PM [facility] CO2 24 21 - 32 mmol/L LAB CHEMISTRY METHOD 11/27/2024 12:24 PM [facility] Anion Gap 6 3 - 11 LAB CHEMISTRY METHOD 11/27/2024 12:24 PM [facility] Glucose 88 70 - 100 mg/dL LAB CHEMISTRY METHOD 11/27/2024 12:24 PM [facility] BUN 27(H) 5 - 25 mg/dL LAB CHEMISTRY METHOD 11/27/2024 12:24 PM [facility] Creatinine 1.20 0.70 - 1.30 mg/dL LAB CHEMISTRY METHOD 11/27/2024 12:24 PM [facility] eGFR 63 >=60 mL/min/1. 73m2 LAB CHEMISTRY METHOD 11/27/2024 12:24 PM [facility] Comment:Calculation based on the Chronic Kidney Disease Epidemiology Collaboration (CKD-EPI) equation refit without adjustment for race. BUN/Creatinine Ratio 22.5 LAB CHEMISTRY METHOD 11/27/2024 12:24 PM [facility] Calcium 9.4 8.5 - 10.5 mg/dL LAB CHEMISTRY METHOD 11/27/2024 12:24 PM [facility] AST (SGOT) 29 10 - 42 unit/L LAB CHEMISTRY METHOD 11/27/2024 12:24 PM [facility] ALT (SGPT) 25 10 - 60 unit/L LAB CHEMISTRY METHOD 11/27/2024 12:24 PM EDT [facility] Alkaline Phosphatase 105 42 - 121 unit/L LAB CHEMISTRY METHOD 11/27/2024 12:24 PM T [facility] Total Protein 5.6(L) 6.0 - 8.0 g/dL LAB CHEMISTRY METHOD 11/27/2024 12:24 PM T [facility] Albumin 2.9(L) 3.2 - 5.0 g/dL LAB CHEMISTRY METHOD 11/27/2024 12:24 PM T [facility] Total Bilirubin 0.6 0.0 - 1.4 mg/dL LAB CHEMISTRY METHOD 11/27/2024 12:24 PM [facility] Blood Venous blood specimen / Unknown Venipuncture / Unknown 11/27/2024 5:13 AM EDT 11/27/2024 10:58 AM EDT us Felix Smith MD LAB BLOOD ORDERABLES Final Resul t [facility] [address] [place] [address], * (ABNORMAL) Complete blood count (11/27/2024 5:13 AM EDT) WBC 7.0 4.8 - 10.8 K/mcL LAB HEMETOLOGY METHOD 11/27/2024 11:19 AM EDT [facility] RBC 3.50(L) 4.50 - 5.50 M/mcL LAB HEMETOLOGY METHOD 11/27/2024 11:19 AM EDT [facility] Hemoglobin 9.3(L) 13.5 - 17.5 g/dL LAB HEMETOLOGY METHOD 11/27/2024 11:19 AM T [facility] Hematocrit 30.1(L) 42.0 - 54.0 % LAB HEMETOLOGY METHOD 11/27/2024 11:19 AM EDT [facility] MCV 85.8 79.0 - 98.0 FL LAB HEMETOLOGY METHOD 11/27/2024 11:19 AM EDT [facility] MCH 26.5(L) 27.0 - 32.0 pcg LAB HEMETOLOGY METHOD 11/27/2024 11:19 AM EDT [facility] MCHC 30.9(L) 32.0 - 37.0 g/dL LAB HEMETOLOGY METHOD 11/27/2024 11:19 AM EDT [facility] RDW 16.3(H) 11.0 - 15.0 % LAB HEMETOLOGY METHOD 11/27[facility]2024 [facility] Platelets 212 130 - 400 K/mcL LAB HEMETOLOGY METHOD 11/27/2024 11:19 AM EDT [facility] MPV 11.5(H) 7.0 - 11.0 FL LAB HEMETOLOGY METHOD 11/27/2024 11:19 AM EDT [facility] NRBC 0.0 <1.0 % LAB HEMETOLOGY METHOD 11/27/2024 11:19 AM [facility] NRBC Absolute 0.00 <0.10 K/mcL LAB HEMETOLOGY METHOD 11/27/2024 11:19 AM EDT [facility] Blood Venous blood specimen / Unknown Venipuncture / Unknown 11/27/2024 5:13 AM EDT 11/27/2024 10:58 AM EDT us Felix Smith MD LAB BLOOD ORDERABLES Final Resul t [facility] [address] [place] [address], documented in this encounter Visit Diagnoses Diagnosis Unspecified atrial fibrillation (CMS/HCC V24, CMS/HCC V28) Hyperlipidemia, unspecified Essential (primary) hypertension Unspecified essential hypertension Anemia, unspecified Vitamin B12 deficiency anemia, unspecified Vitamin D deficiency, unspecified documented in this encounter Care Teams Heart Specialist Relationship Specialty Start Date End Date Felix Smith MD [address] [place] [address] [address] [place] [address] PCP - General Geriatric Medicine 12/03/24 documented as of this encounter
--- OUTSIDE RECORDS SUMMARY | 2025-07-08 22:49 | XMS_ITS | Encounter Summary ---
Author Organization [facility] Address [address] [place] [address] Care Team Providers Care Air Traffic Control Manager Name Role Phone Felix Smith MD Primary Care Provider [phone] Encounter Details Date Type Department Care Team (Late st Contact Info) Description 12/10/2024 Lab Requisition [facility] - Main Lab [address] [facility] [place] [address] Felix Smith MD [address] [place], [place] [id number] Unspecified atrial fibrillation (CMS/HCC V24, CMS/HCC V28); Atherosclerotic heart disease of [place] coronary artery without angina pectoris Social History Tobacco Use Types Packs/Day Years [...] Procedure Name Priority Date/Time Associated Diagnosis Comments COMPLETE BLOOD COUNT Routine 12/11/2024 6:20 AM EDT Unspecified atrial fibrillation (CMS/HCC V24, CMS/HCC V28) Atherosclerotic heart disease of [place] coronary artery without angina pectoris BASIC METABOLIC PANEL Routine 12/11/2024 6:20 AM EDT Unspecified atrial fibrillation (CMS/HCC V24, CMS/HCC V28) Atherosclerotic heart disease of [place] coronary artery without angina pectoris documented in this encounter Results * Basic metabolic panel (12/11/2024 6:20 AM EDT) Sodium 138 133 - 145 mmol/L LAB CHEMISTRY METHOD 12/11/2024 9:[address] [facility] Potassium 4.5 3.5 - 5.5 mmol/L LAB CHEMISTRY METHOD 12/11/2024 9:[address] [facility] Chloride 107 96 - 110 mmol/L LAB CHEMISTRY METHOD 12/11/2024 9:[address] [facility] CO2 27 21 - 32 mmol/L LAB CHEMISTRY METHOD 12/11/2024 9:[address] [facility] Anion Gap 4 3 - 11 LAB CHEMISTRY METHOD 12/11/2024 9:[address] [facility] Glucose 87 70 - 100 mg/dL LAB CHEMISTRY METHOD 12/11/2024 9:[address] [facility] BUN 22 5 - 25 mg/dL LAB CHEMISTRY METHOD 12/11/2024 9:[address] [facility] Creatinine 1.09 0.70 - 1.30 mg/dL LAB CHEMISTRY METHOD 12/11/2024 9:[address] [facility] eGFR 71 >=60 mL/min/1. 73m2 LAB CHEMISTRY METHOD 12/11/2024 9:[address] [facility] Comment:Calculation based on the Chronic Kidney Disease Epidemiology Collaboration (CKD-EPI) equation refit without adjustment for race. BUN/Creatinine Ratio 20.2 LAB CHEMISTRY METHOD 12/11/2024 9:[address] [facility] Calcium 9.7 8.5 - 10.5 mg/dL LAB CHEMISTRY METHOD 12/11/2024 9:[address] [facility] Blood Venous blood specimen / Unknown Venipuncture / Unknown 12/11/2024 6:20 AM EDT 12/11/2024 8:59 AM EDT us Felix Smith MD LAB BLOOD ORDERABLES Final Resul t [facility] [address] [place] [address], [place] [phone] * (ABNORMAL) Complete blood count (12/11/2024 6:20 AM EDT) [facility] WBC 7.8 4.8 - 10.8 K/mcL LAB HEMETOLOGY METHOD 12/11/2024 9:[address] [facility] RBC 3.90(L) 4.50 - 5.50 M/mcL LAB HEMETOLOGY METHOD 12/11/2024 9:[address] [facility] Hemoglobin 10.6(L) 13.5 - 17.5 g/dL LAB HEMETOLOGY METHOD 12/11/2024 9:[address] [facility] Hematocrit 34.6(L) 42.0 - 54.0 % LAB HEMETOLOGY METHOD 12/11/2024 9:[address] [facility] MCV 88.9 79.0 - 98.0 FL LAB HEMETOLOGY METHOD 12/11/2024 9:[address] [facility] MCH 27.2 27.0 - 32.0 pcg LAB HEMETOLOGY METHOD 12/11/2024 9:[address] [facility] MCHC 30.6(L) 32.0 - 37.0 g/dL LAB HEMETOLOGY METHOD 12/11/2024 9:[address] [facility] RDW 17.3(H) 11.0 - 15.0 % LAB HEMETOLOGY METHOD 12/11/2024 9:[address] [facility] Platelets 316 130 - 400 K/mcL LAB HEMETOLOGY METHOD 12/11/2024 9:[address] [facility] MPV 10.6 7.0 - 11.0 FL LAB HEMETOLOGY METHOD 12/11/2024 9:[address] [facility] NRBC 0.0 <1.0 % LAB HEMETOLOGY METHOD 12/11/2024 9:28 AM EDT [facility] NRBC Absolute 0.00 <0.10 K/mcL LAB HEMETOLOGY METHOD 12/11/2024 9:28 AM EDT [facility] Blood Venous blood specimen / Unknown Venipuncture / Unknown 12/11/2024 6:20 AM EDT 12/11/2024 8:58 AM EDT us Felix Smith MD LAB BLOOD ORDERABLES Final Resul t [facility] [address] [place] [address], documented in this encounter Visit Diagnoses Diagnosis Unspecified atrial fibrillation (CMS/HCC V24, CMS/HCC V28) Atherosclerotic heart disease of [place] coronary artery without angina pectoris documented in this encounter Care Teams Air Traffic Control Manager Relationship Specialty Start Date End Date Felix Smith MD [address] [place] [address] [address] [place] [address] PCP - General Geriatric Medicine 12/03/24 documented as of this encounter
--- OUTSIDE RECORDS SUMMARY | 2025-07-08 22:49 | XMS_ITS ---
Author Name [facility] Organization Unknown Results Test Name/Text Value Interpretation Date Range Source Deprecated D Dimer PPP-aCnc 0.52 mg/L FEU Normal 02/24/2024 0.19 - 0.79 [facility]CG[facility] Urobilinogen Ur Strip.auto-mCnc 1.0 mg/dL Normal 02/24/2024 - [facility] Bacteria #/area UrnS Auto Many Abnormal 02/24/2024 - [facility]CG[facility] Hyaline Casts #/area UrnS Auto 3.0 /LPF Normal 02/24/2024 0 - 3 [facility] Hgb Ur Ql Strip.auto Small Abnormal 02/24/2024 - [facility] pH Ur Strip.auto 5.5 Normal 02/24/2024 4.6 - 8 HC GH WBC #/area UrnS Auto 109.0 /HPF Above high normal 02/24/2024 - [facility]CG[facility] Nitrite Ur Ql Strip.auto Positive Abnormal 02/24/2024 - [facility]CG[facility] Color Ur Yellow Normal 02/24/2024 [facility] Sp Gr Ur Refractometry 1.018 Normal 02/24/2024 1.003 - 1.03 [facility]CG[facility] Glucose Ur Strip.auto-mCnc Negative Normal 02/24/2024 - [facility]CG[facility] WBC # Ur Auto 605.0 /mcL Above high normal 02/24/2024 0 - 27 [facility]CG[facility] Squamous #/area UrnS Auto 0.0 /HPF Normal 02/24/2024 [facility]CG[facility] RBC # Ur Auto 6.0 /mcL Normal 02/24/2024 0 - 27 [facility] Prot Ur Ql Strip.auto 1+ Abnormal 02/24/2024 - [facility] Leukocyte esterase Ur Ql Strip.auto Large Abnormal 02/24/2024 - [facility]CG[facility] Appearance Ur Cloudy Normal 02/24/2024 [facility]CG[facility] RBC #/area UrnS Auto 1.0 /HPF Normal 02/24/2024 - [facility]CG[facility] Ketones Ur Ql Strip.auto Negative Normal 02/24/2024 - [facility]CG[facility] Bilirub Ur Ql Strip.auto Negative Normal 02/24/2024 - [facility] NT-proBNP SerPl-mCnc 176.0 pg/mL Above high normal - [facility] LAB CHEM DELTA HS-TROP-T -1.0 ng/L Normal 02/24/2024 - [facility]CG[facility] Troponin T SerPl HS-mCnc 12.0 ng/L Normal 02/24/2024 - HCG[facility] [age] a Normal 02/24/2024 [facility]CG[facility] SARS-CoV-2 RNA Resp Ql EDMUND+probe Not detected Normal 02/24/2024 [facility]CG[facility] Is the patient having COVID symptoms? No Normal 02/24/2024 [facility] SARS-CoV-2 RNA Resp Ql EDMUND+probe NO RNA DETECTED Normal 02/24/2024 MDNEDSS Is the patient having COVID symptoms? No Normal 02/24/2024 MDNEDSS Troponin T SerPl HS-mCnc 12.0 ng/L Normal 02/24/2024 - HCG LAB CHEM DELTA HS-TROP-T 0-1 HR -1.0 ng/L Normal 02/24/2024 - [facility]CG[facility] BUN SerPl-mCnc 22.0 mg/dL Normal 02/24/2024 7 - 22 HCG H Albumin SerPl BCG-mCnc 4.2 g/dL Normal 02/24/2024 3.5 - 5 HCG[facility] ALT SerPl w/o P-5'-P-cCnc 24.0 U/L Normal 02/24/2024 0 - 41 [facility]CG[facility] Sodium SerPl-sCnc 139.0 mmol/L Normal 02/24/2024 135 - 14 8 HCG[facility] Anion Gap SerPl-sCnc 8.0 mmol/L Normal 02/24/2024 7 - 16 [facility]CG[facility] Potassium SerPl-sCnc 4.9 mmol/L Normal 02/24/2024 3.5 - 5 .1 HCG[facility] Prot SerPl-mCnc 7.5 g/dL Normal 02/24/2024 6 - 8.2 HCG H ALP SerPl-cCnc 153.0 U/L Above high normal 02/24/2024 30 - 1 30 HCG[facility] AST SerPl-cCnc 26.0 U/L Normal 02/24/2024 - [facility]CG[facility] Chloride SerPl-sCnc 104.0 mmol/L Normal 02/24/2024 98 - 1 10 HCG[facility] AST/ALT SerPl-cRto 1.1 Normal 02/24/2024 [facility]CG[facility] BUN/Creat SerPl 22.0 Normal 02/24/2024 HCG H Bilirub SerPl-mCnc <0.2 mg/dL Normal 02/24/2024 - HCG[facility] CO2 SerPl-sCnc 27.0 mmol/L Normal 02/24/2024 21 - 31 HC GH Calcium SerPl-mCnc 10.0 mg/dL Normal 02/24/2024 8.4 - 10. 5 HCG[facility] GFR/BSA.pred SerPlBld SIG-RAM-QkHQvj 78.0 mL/min/1.73 sqm Normal 02/24/2024 60 - HCG[facility] Creat SerPl-mCnc 1.01 mg/dL Normal 02/24/2024 0.5 - 1.4 H CGH Glucose SerPl-mCnc 102.0 mg/dL Above high normal 02/24/2024 71 - 99 [facility]CG[facility] Troponin T SerPl HS-mCnc 13.0 ng/L Normal 02/24/2024 - HCG[facility] MCV RBC Auto 83.8 fL Normal 02/24/2024 80 - 100 [facility]CG[facility] Lymphocytes # Bld Auto 1.63 K/cu mm Normal 02/24/2024 1.1 - 4.8 HCG[facility] PMV Bld Auto 10.4 fL Normal 02/24/2024 9.2 - 12.7 [facility]CG[facility] Eosinophil/leuk NFr Bld Auto 3.2 % Normal 02/24/2024 1 - 4 [facility]CG[facility] Hgb Bld-mCnc 12.0 g/dL Below low normal 02/24/2024 13.9 - 16 .3 HCG[facility] Monocytes # Bld Auto 0.5 K/cu mm Normal 02/24/2024 0.1 - 1.2 HCG[facility] RDW RBC Auto-Rto 15.6 % Above high normal 02/24/2024 11.5 - 14.5 [facility]CG[facility] Monocytes/leuk NFr Bld Auto 6.0 % Normal 02/24/2024 2 - 11 [facility]CG[facility] Neutrophils # Bld Auto 5.92 K/cu mm Normal 02/24/2024 1.5 - 7.8 [facility]CG[facility] Platelet # Bld Auto 398.0 K/cu mm Above high normal 08/03/20 24 150 - 350 HCG[facility] RBC # Bld Auto 4.7 M/cu mm Normal 02/24/2024 4.5 - 5.9 HC GH Neutrophils/leuk NFr Bld Auto 70.7 % Above high normal 02/24/2024 40 - 70 HCG[facility] Imm Granulocytes # Bld Auto 0.02 K/cu mm Normal 02/24/2024 0 - 0.05 HCG[facility] Eosinophil # Bld Auto 0.27 K/cu mm Normal 02/24/2024 0.12 - 0.3 HCG[facility] MCH RBC Qn Auto 25.5 pg Below low normal 02/24/2024 26 - 3 4 HCG[facility] Hct VFr Bld Auto 39.4 % Below low normal 02/24/2024 41 - 53 [facility]CG[facility] Lymphocytes/leuk NFr Bld Auto 19.5 % Below low normal 02/24/2024 24 - 44 HCG[facility] Imm Granulocytes/leuk NFr Bld Auto 0.2 % Normal 02/24/2024 0 - 1 HCG[facility] MCHC RBC Auto-mCnc 30.5 g/dL Below low normal 02/24/2024 31 - 37 HCG[facility] WBC nRBC cor # Bld Auto 8.37 K/cu mm Normal 02/24/2024 4.5 - 11 HCG[facility] Basophils/leuk NFr Bld Auto 0.4 % Normal 02/24/2024 0 - 2 HCG[facility] nRBC/100 WBC Bld Manual-Rto 0.0 K/cu mm Normal 02/24/2024 0 - 0.01 HCG[facility] Encounters Encounter Type Encounter Reason Primary Diagnosis Location Date Emergency Acute cystitis without hematuria Acute cystitis without hematuria [facility] 02/24/2024 Care Team Organization Name Specialty Phone Email Start Date End Da te [facility] NO PCP Primary Care 02/24/2024 [facility] 02/24/2024 09/01/2024 [facility] 02/24/2024
--- OUTSIDE RECORDS SUMMARY | 2025-07-08 22:49 | XMS_ITS | Encounter Summary ---
Author Organization [facility] Address [address] [place] [address] Care Team Providers Care Tumbler Tender Name Role Phone Felix Smith MD Primary Care Provider [phone] Encounter Details Date Type Department Care Team (Late st Contact Info) Description 12/17/2024 Lab Requisition [facility] - Main Lab [address] [place] [address] Felix Smith MD [address] [place] [address] Unspecified atrial fibrillation (CMS/HCC V24, CMS/HCC V28); Atherosclerotic heart disease of [place] coronary artery without angina pectoris Social History Tobacco Use Types Packs/Day Years Used Date Smoking Tobacco: Never Assessed Sex and Gender Information Value Date Recorded Sex Assigned at Not on file Legal Sex Male 1:55 AM EST Gender Identity Not on file Sexual Orientation Not on file documented as of this encounter Plan of Treatment Not on file documented as of this encounter Visit Diagnoses Diagnosis Unspecified atrial fibrillation (CMS/HCC V24, CMS/HCC V28) Atherosclerotic heart disease of [place] coronary artery without angina pectoris documented in this encounter Care Teams Tumbler Tender Relationship Specialty Start Date End Date Felix Smith MD [address] [place], [place] [id number] PCP - General Geriatric Medicine 12/03/24 documented as of this encounter
--- OUTSIDE RECORDS SUMMARY | 2025-07-08 22:49 | XMS_ITS | Encounter Summary ---
Author Organization [facility] Address [address] [place] [address] Care Team Providers Care Extrusion Die Repair Manager Name Role Phone Felix Smith MD Primary Care Provider [phone] Encounter Details Date Type Department Care Team (Late st Contact Info) Description 12/03/2024 Lab Requisition [facility] - Main Lab [address] [address] [facility] [place] [address] Felix Smith MD [address] [place], [place] [id number] Unspecified atrial fibrillation (CMS/HCC V24, CMS/HCC V28); Atherosclerotic heart disease of [place] coronary artery without angina pectoris Social History [...] Associated Diagnosis Comments COMPLETE BLOOD COUNT Routine 12/04/2024 6:24 AM EDT Unspecified atrial fibrillation (CMS/HCC V24, CMS/HCC V28) Atherosclerotic heart disease of [place] coronary artery without angina pectoris BASIC METABOLIC PANEL Routine 12/04/2024 6:24 AM EDT Unspecified atrial fibrillation (CMS/HCC V24, CMS/HCC V28) Atherosclerotic heart disease of [place] coronary artery without angina pectoris documented in this encounter Results * Basic metabolic panel (12/04/2024 6:24 AM EDT) Sodium 138 133 - 145 mmol/L LAB CHEMISTRY METHOD 12/04/2024 8:42 AM [facility] Potassium 5.0 3.5 - 5.5 mmol/L LAB CHEMISTRY METHOD 12/04/2024 8:42 AM [facility] Chloride 107 96 - 110 mmol/L LAB CHEMISTRY METHOD 12/04/2024 8:42 AM [facility] CO2 24 21 - 32 mmol/L LAB CHEMISTRY METHOD 12/04/2024 8:42 AM [facility] Anion Gap 7 3 - 11 LAB CHEMISTRY METHOD 12/04/2024 8:42 AM [facility] Glucose 95 70 - 100 mg/dL LAB CHEMISTRY METHOD 12/04/2024 8:42 AM [facility] BUN 22 5 - 25 mg/dL LAB CHEMISTRY METHOD 12/04/2024 8:42 AM [facility] Creatinine 1.24 0.70 - 1.30 mg/dL LAB CHEMISTRY METHOD 12/04/2024 8:42 AM [facility] eGFR 61 >=60 mL/min/1. 73m2 LAB CHEMISTRY METHOD 12/04/2024 8:42 AM [facility] Comment:Calculation based on the Chronic Kidney Disease Epidemiology Collaboration (CKD-EPI) equation refit without adjustment for race. BUN/Creatinine Ratio 17.7 LAB CHEMISTRY METHOD 12/04/2024 8:42 AM [facility] Calcium 9.6 8.5 - 10.5 mg/dL LAB CHEMISTRY METHOD 12/04/2024 8:42 AM [facility] Blood Venous blood specimen / Unknown Venipuncture / Unknown 12/04/2024 6:24 AM EDT 12/04/2024 8:04 AM EDT us Felix Smith MD LAB BLOOD ORDERABLES Final Resul t [facility] [address] [place] [address], [place] [phone] * (ABNORMAL) Complete blood count (12/04/2024 6:24 AM EDT) [facility] WBC 7.8 4.8 - 10.8 K/mcL LAB HEMETOLOGY METHOD [facility] RBC 3.90(L) 4.50 - 5.50 M/mcL LAB HEMETOLOGY METHOD 12/04/2024 8:40 AM EDT [facility] Hemoglobin 10.3(L) 13.5 - 17.5 g/dL LAB HEMETOLOGY METHOD 12/04/2024 8:40 AM [facility] Hematocrit 34.1(L) 42.0 - 54.0 % LAB HEMETOLOGY METHOD 12/04/2024 8:40 AM [facility] MCV 88.3 79.0 - 98.0 FL LAB HEMETOLOGY METHOD [facility]/04[facility]2024 8[facility] MCH 26.7(L) 27.0 - 32.0 pcg LAB HEMETOLOGY METHOD 12/04/2024 8:40 AM [facility] MCHC 30.2(L) 32.0 - 37.0 g/dL LAB HEMETOLOGY METHOD 12/04/2024 8:40 AM [facility] RDW 17.3(H) 11.0 - 15.0 % LAB HEMETOLOGY METHOD 12/04/2024 8[facility]40 [facility] Platelets 322 130 - 400 K/mcL LAB HEMETOLOGY METHOD 12/04/2024 8:40 [facility] MPV 10.8 7.0 - 11.0 FL LAB HEMETOLOGY METHOD 12/04/2024 8:40 [facility] NRBC 0.0 <1.0 % LAB HEMETOLOGY METHOD 12/04/2024 8:40 AM EDT [facility] NRBC Absolute 0.00 <0.10 K/mcL LAB HEMETOLOGY METHOD 12/04/2024 8:40 AM EDT [facility] Blood Venous blood specimen / Unknown Venipuncture / Unknown 12/04/2024 6:24 AM EDT 12/04/2024 8:05 AM EDT Felix Smith MD LAB BLOOD ORDERABLES Final Resul t [facility] [address] [place] [address], documented in this encounter Visit Diagnoses Diagnosis Unspecified atrial fibrillation (CMS/HCC V24, CMS/HCC V28) Atherosclerotic heart disease of [place] coronary artery without angina pectoris documented in this encounter Care Teams Extrusion Die Repair Manager Relationship Specialty Start Date End Date Felix Smith MD [address] [place] [address] [address] [place] [address] PCP - General Geriatric Medicine 12/03/24 documented as of this encounter
[2025-07-09] MEDS: Lidocaine 4 % Patch ADH..PATCH 1 PATCH TRANSDERMA (00:24)
[2025-07-09 00:29] VITALS: BP 137/74; PULSE 53; RESP 16; TEMP 36.4; O2SAT 98
[2025-07-09 01:31] VITALS: BP 137/74; PULSE 53; RESP 16; TEMP 36.4; O2SAT 98
== END 2025-07-09 01:32 | disposition home or self-care (01) ==
PROVIDERS: Physician Assistant; Emergency Provider Emergency Medicine
DX: S39.012A Strain of muscle, fascia and tendon of lower back, initial encounter (principal); V59.49XA Driver of pick-up truck or van injured in collision with other motor vehicles in traffic accident, initial encounter; Y93.9 Activity, unspecified; Y92.410 Unspecified street and highway as the place of occurrence of the external cause; N30.00 Acute cystitis without hematuria; R10.A1 Flank pain, right side
CPT/HCPCS: 36415; 72100; 74176; 80053; 81001; 85025; 87086; 87088; 87186; 99284

== ENCOUNTER → 2025-07-08 18:01 | Outpatient (BNV) | payer OTHER, SELFPAY | PROVIDERS: Visit Provider Radiology Diagnostic Radiology | DX: K44.9 Diaphragmatic hernia without obstruction or gangrene (principal); K42.9 Umbilical hernia without obstruction or gangrene; M51.379 Other intervertebral disc degeneration, lumbosacral region without mention of lumbar back pain or lower extremity pain; I71.43 Infrarenal abdominal aortic aneurysm, without rupture; I70.0 Atherosclerosis of aorta; N20.0 Calculus of kidney | CPT/HCPCS: 72100; 74176 ==